=== PATIENT | male | born 1950 | race Caucasian/White ===

== ENCOUNTER 2017-04-10 12:30 | Observation (INO) | payer MEDICARE, OTHER ==
[~2017-04-10] VITALS: Ht 182.9 cm; Wt 99.4 kg
[2017-04-10] VITALS (14 sets, daily range): BP systolic 114–155; BP diastolic 45–96
[~2017-04-10 12:30] MED LIST: EXCEDRIN EXTRA1 EACH PO; PRILOSEC20 M1 PO; Prilosec20 MG PO; UNITHROID0.088 MG PO; VITAMIN C PUR1000 MG PO; VITAMIN D32000 UNI1 PO
[2017-04-10 12:49] LABS: HEMOGLOBIN 12.1 g/dL (14.1-18.0); LYMPH # 1.1 K/mm3 (0.7-4.5); LYMPH % 18.6 % (10-50)
[2017-04-10 13:12] LABS: BUN 25 mg/dL (7-18); GFR (ESTIMATED) 75 ML/MIN (>60)
--- NOTE | 2017-04-10 13:26 | Emergency Room Report ---
History of Present Illness Time Seen by [id number] Presenting Problem in Triage Pt arrived:Walked Presenting Problem:GI DISCOMFORT FOR A COUPLE OF DAYS PT STATES HE HAS BEEN EXPERIENCING CHILLS, MID EPIGASTRIC DISCOMFORT AND HAS VOMITED AT LEAST 4 TIMES. THE LAST OF THE EMESIS BEING DARK. 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 N Clinical Suspician of Infection? N Mental Status: 1 - Regular (Normal Baseline) Sepsis Risk:Low Sepsis Risk Have you (or family members/close friends) recently traveled outside the [place]? N If Yes, where/when: Have you had exposure to infectious disease within the past month? TB? Other? Specify: Dark emesis, dark stools x one day, epigastric pain localized, nonradiating, x four to five days. Reports unintentional weight loss of twenty pounds in the last few months. No urinary sx. Took aspirin yesterday for mild cephalgia, and no cephalgia today. No cough, no fever, no flu symptoms. Initially my understanding was that he had not undergone colonoscopy but on further discussion, he has had intervention of his esophagus (?dilatation?) in [place] in the past as well as colonoscopy. No recent colonoscopy, however. ALLERGIES Coded Allergies: No Known Allergies (04/10/17) Home Medications Reported Medications OMEPRAZOLE MAGNESIUM (Prilosec 20MG) 20 MG PO PRN Levothyroxine Sodium (Levothyroxine (88 Mcg)) 0.088 MG PO DAILY Cholecalciferol (Vitamin D3) (Vitamin D3) 2,000 UNIT PO Ascorbic Acid (Vitamin C) 1,000 MG PO Aspirin/Acetaminophen/Caffeine (Excedrin Extra Strength Caplet) 1 EACH PO History Medical History General Angina: No NC: No Hypertension? No Hyperlipidemia? No CHF? No COPD? No Asthma? No Hernia? No Thyroid Problems? Yes CVA? No Seizures? No Diabetes? No UTI? No Stones? No GB Disease: No Hepatitis? No Cataracts? Yes Glaucoma? No TB? No Cancer? No Immunization Hx Ped.Immunizations UTD Yes DT/Tetanus 1-4 YRS Flu NEVER Pneumonia NEVER Surgical Hx Previous Surgery?Y CATARACTS L HAND Family History Family Hx Diabetes Yes CAD Yes Hypertension Yes Hyperlipidemia No Cancer No TB No Social History Smoking Hx Smoker: Never Smoker Tobacco: No Type N/A Are you/the child exposed to second-hand smoke: No Alcohol Alcohol: No Review of Systems All Other Systems Reviewed and Negative Constitutional see HPI Gastrointestinal see HPI, diarrhea, vomiting Physical Exam Vital Signs Vital Signs Date Time Temp Pulse Resp B/P Pulse O2 O2 Flow FiO2 Ox Delivery Rate 04/10 1238 97.6 79 18 142/96 99 General Appearance normal appearance, WD/WN, no apparent distress Eye Exam - bilateral eye normal exam, bilateral eye PERRL, bilateral eye EOMI Neck normal inspection, non-tender, supple, full range of motion Respiratory Status Yes: trachea midline, chest symmetrical, non tender chest. No: respiratory distress, tender on palpation, use of accessory muscles, pain on inspiration, pain on expiration, productive cough, non productive cough. Lung Sounds bilateral: normal breath sounds, lungs clear. Cardiovascular normal exam, regular rate/rhythm, no peripheral edema, no gallop, no JVD, no murmur, no rub Gastrointestinal normal bowel sounds, normal exam, soft, no organomegaly, no pulsatile mass, no guarding, no rebound, tenderness, hernia (very mild pain above umbilicus) Extremities normal range of motion, normal capillary refill Strength 5 Upper Ext (L), 5 Upper Ext (R), 5 Lower Ext (L), 5 Lower Ext (R) Rectal normal exam, normal rectal tone, black stool (no hemorrhoids;nl prostate) Neurologic alert, normal exam, no motor/sensory deficits Skin intact, normal color, warm/dry Medical Decision Making LABS/Meds/Orders Pt receiving controlled substance in ED? No Results/Orders Laboratory Tests 04/10/17 1325: Stool Occult Blood POSITIVE 04/10/17 1240: Sodium 143, Potassium 3.8, Chloride 106, Carbon Dioxide 29, BUN 25 H, Creatinine 1.0, Estimated Creat Clear 105, Estimated GFR (MDRD) 75, Glucose 93, Calcium 9.0, Total Bilirubin 0.5, AST 22, ALT 25, Alkaline Phosphatase 102, Creatine Kinase 367 H, CK-MB (CK-2) Rel Index 1.6, CK and CKMB Interp 5.9 H, Troponin I < 0.02, Total Protein 6.9, Albumin 3.9, Globulin 3.0, Albumin/ Globulin Ratio 1.3, Amylase 31, Lipase 194, PT 10.7, INR 0.99, APTT 26.7, WBC 6.1, RBC 4.11 L, Hgb 12.1 L, Hct 36.7 L, MCV 89.3, RDW 14.1, Plt Count 293, MPV 8.6, Gran % 73.2, Gran # 4.4, Lymphocytes % 18.6, Monocytes % 6.4, Eosinophils % 1.0, Basophils % 0.9, Lymphocytes # 1.1, Monocytes # 0.4, Eosinophils # 0.1, Basophils # 0.1, PUBS MCHC 33.0, MCH 29.4 Current Medication Orders Sig/Mynor Start time Last Medication Dose Route Stop Time Status Admin Pantoprazole Sodium 40 MG ONCE ONE 04/10 1330 CAN IV 04/10 1331 Sodium Chloride 10 ML ONCE ONE 04/10 1330 DC IV 04/10 1331 Sodium Chloride 1,000 ML .STK-MED ONE 04/10 1246 DC IV Ondansetron HCl 4 MG ONCE ONE 04/10 1245 DC 04/10 IV 04/10 1246 1250 Ondansetron HCl 0 .STK-MED ONE 04/10 1245 DC .ROUTE Pantoprazole Sodium 40 MG ONCE ONE 04/10 1245 DC 04/10 IV 04/10 1246 1250 Pantoprazole Sodium 0 .STK-MED ONE 04/10 1245 DC IV Sodium Chloride 1,000 ML .Q1H1M 04/10 1245 DC 04/10 IV 04/10 1345 1250 Sodium Chloride 10 ML PRN PRN 04/10 1245 AC IV 04/11 1241 Sodium Chloride 10 ML ONCE ONE 04/10 1245 DC 04/10 IV 04/10 1246 1251 Sodium Chloride 10 ML PRN PRN 04/10 1245 AC IV 04/11 1241 Orders Procedure Date/time Status Decision to admit 04/10 1415 Active TYPE AND SCREEN 04/10 1345 Active PARTIAL THROMBOPLASTIN TIME 04/10 1345 Complete PROTHROMBIN TIME 04/10 1345 Complete STOOL OCCULT BLOOD 04/[address] ABD/PELVIS REQ 04/10 1242 Complete IV SALINE LOCK 04/10 1242 Active LIPASE 04/10 1242 Complete CBC WITH AUTO DIFF 04/10 1242 Complete CARDIAC ENZYMES 04/10 1242 Complete CHEM 12 PROFILE 04/10 1242 Complete AMYLASE 04/10 1242 Complete XRAY/CT/US XRAY/CT/US CT interpretation by reviewed by me (report reviewed) Time results known: 1402 CT Results abnormal, reflux; diverticulosis Consult MD Physician Consult 1 Consult/PCP Dr. Thao available to evaluate later today as pt HDS. Keep pt NPO. Time Called 1402 Reason Pt. Condition, Surgical eval/care Physician Consult 2 Consult/PCP Dr. Abernathy admitting for Dr. Soler Time Called 141 Departure Departure Time of Disposition 141 Disposition Still a Patient Clinical Impression Primary Impression: Epigastric pain Secondary Impressions: Guaiac positive stools Condition STABLE Referrals Kim Soler MD (Family) ED Critical Care Critical Care No at [id number]
[2017-04-10 13:28] LABS: STOOL OCCULT BLOOD POSITIVE (NEG)
--- NOTE | 2017-04-10 13:53 | RADIOLOGY REPORT PS360 ---
CT ABD PELVIS W/O CONTRAST CLINICAL INDICATION: PAIN MID EPIGASTRIC AREA ORDERING PHYSICIAN: PATIENT AGE: 66 years COMPARISON: None TECHNIQUE: Axial images obtained with sagittal and coronal reformats. PROCEDURE: Oral Contrast: None IV Contrast: None . FINDINGS: Lower thorax: There is mild thickening of the distal esophagus nonspecific and may be seen with reflux esophagitis. Please correlate clinically. ABDOMEN: Liver: No masses or biliary dilatation. Gallbladder: Nondistended. No radio opaque stones. Pancreas: No masses or peripancreatic fluid collections. Spleen: Unremarkable. Adrenals: Unremarkable Kidneys/ureters: No masses. No renal calculi. No hydronephrosis. No perinephric fluid collections. No ureteral dilatation or obvious ureteral calculi. Stomach bowel: There is extensive diverticulosis of the descending and sigmoid colon but no evidence of diverticulitis Appendix: No evidence of appendicitis. PELVIS: Reproductive: Unremarkable Bladder: Nondistended. No obvious stones or masses. ABDOMEN & PELVIS: Peritoneum: No abnormal fluid collections. No obvious inflammatory changes. No free air. Abdominal wall: Tiny umbilical hernia containing fat Lymph nodes: No enlarged lymph nodes apparent. Vasculature: No evidence of abdominal aortic aneurysm. No retroperitoneal hemorrhage evident. Bones: Degenerative disc disease L4-5 and L5-S1 IMPRESSION: 1. No acute abdominal or pelvic findings. 2. Extensive diverticulosis. No evidence of diverticulitis. 3. Mild thickening of the distal esophagus nonspecific but could be seen with reflux esophagitis
--- OUTSIDE RECORDS SUMMARY | 2017-04-10 14:28 | External Medical Summary Rpt | CCD ---
Author Author , RODGER SOARES Address Unknown Phone [email or web address] Purpose Continuity of Care Document - 04-10-2017 through 2016 Problems Code Diagnosis DOS Provider Status R07.9 CHEST PAIN, UNSPECIFIED Results Labs Lab Lab Date Result Refere Interp Status Commen Order Detail nces retati t Range on Hemoglobin.gastrointestinal [Presence] in Stool (04-10-2017 13:25) Hemoglo POSITIV NEG complet bin.gas 017 E ed trointe 13:25 stinal [Presen ce] in Stool --1st specime n
--- OUTSIDE RECORDS SUMMARY | 2017-04-10 14:28 | External Medical Summary Rpt | CCD ---
Author Author , RODGER SOARES Address Unknown Phone [email or web address] Purpose Continuity of Care Document - 04-10-2017 [...]
--- OUTSIDE RECORDS SUMMARY | 2017-04-10 14:28 | External Medical Summary Rpt | CCD ---
Author Author [employer] Organization [employer] Address Unknown Phone Unavailable Purpose Continuity of Care Document - through 2016
--- OUTSIDE RECORDS SUMMARY | 2017-04-10 14:29 | External Medical Summary Rpt | CCD ---
Demographics Preferred Language Irish Marital Status Unknown Lutheran Affiliation Unknown Race Unknown Ethnic Group Unknown Author Author , ABRAHAM SOARES Address Unknown Phone Immunization Unable to retrieve immunization data due to connection failure with Immunization Registry. Please try again later.
--- OUTSIDE RECORDS SUMMARY | 2017-04-10 14:29 | External Medical Summary Rpt ---
Author Author RODGER Perales, BRICHARLES [employer] Organization [employer] Address Unknown Phone Unavailable Results Hemoglobin.gastrointestinal [Presence] in Stool Observa Value Referen Units Interpr Notes Date tion ce etation Range Hemoglo POSITIV NEG No No No Apr 10 bin.gas E informa informa informa 2017 trointe tion in tion in tion in 1:25 PM stinal source source source [Presen data data data ce] in Stool --1st specime n INR in Blood by Coagulation assay Observa Value Referen Units Interpr Notes Date tion ce etation Range IS PATIENT ON ANTICOAGULANTS? N INR in 0.9 - 1.1 No Normal INDICATIO Apr 10 Blood by informati N 2017 Coagulati on in 12:40 PM on assay source INR data RANGETHER APY FOR DVT, PE, ATRIAL FIB; 2.0 - 3.0PROPHY LAXIS FOR VTETHERAP Y FOR MECHANICA L HEART 2.5 - 3.5VALVE; PREVENTIO N OF SYSTEMICE MBOLISM SECONDARY TO AMI Prothromb 9.4 - SECONDS Normal No Apr 10 in time 11.8 2016 (PT) in on in 12:40 PM Platelet source poor data plasma by Coagulati on assay Activated partial thrombplastin time (aPTT) in Platelet poor plasma by Coagulation assay Observa Value Referen Units Interpr Notes Date tion ce etation Range IS PATIENT ON ANTICOAGULANTS? N Activated 23.6 - SECONDS Normal No Apr 10 partial 34.0 2016 thrombpla on in 12:40 PM stin time source (aPTT) data in Platelet poor plasma by Coagulati on assay CBC W Auto Differential panel in Blood Observa Value Referen Units Interpr Notes Date tion ce etation Range Basophils 0 - 0.2 K/MM3 Normal No Apr 102016 [#/volume on in 12:40 PM ] in source Blood by data Automated count Basophils 0.1 - 2.0 % Normal No Apr 10 /100 informati 2017 leukocyte on in 12:40 PM s in source Blood by data Automated count Eosinophi 0.0 - 0.4 K/mm3 Normal No Apr 10 ls informati 2016 [#/volume on in 12:40 PM ] in source Blood by data Automated count Eosinophi 0.1 - % Normal No Apr 10 ls/100 12.0 informati 2016 leukocyte on in 12:40 PM s in source Blood by data Automated count Granulocy 1.3 - 8.0 K/mm3 Normal No Apr 10 ladna informati 2016 [#/volume on in 12:40 PM ] in source Blood by data Automated count Granulocy 37.0 - % Normal No Apr 10 ladan/100 80.0 informati 2016 leukocyte on in 12:40 PM s in source Blood by data Automated count Hematocri 42.0 - % Low No Apr 10 t [Volume 52.0 informati 2016 on in 12:40 PM Fraction] source of Blood data Hemoglobi 14.1 - g/dL Low No Apr 10 n 18.0 informati 2016 [Mass/vol on in 12:40 PM ume] in source Blood data Lymphocyt 0.7 - 4.5 K/mm3 Normal No Apr 10 es 2016 [#/volume on in 12:40 PM ] in source Unspecifi data ed specimen by Automated count Lymphocyt 10 - 50 % Normal No Apr 10 es 2016 [#/volume on in 12:40 PM ] in source Unspecifi data ed specimen by Automated count Erythrocy 27 - 31.2 pg Normal Apr 10 te mean 2016 corpuscul on in 12:40 PM ar source hemoglobi data n [Entitic mass] Erythrocy 31.8 - g/dl Normal Apr 10 te mean 35.4 2016 corpuscul on in 12:40 PM ar source hemoglobi data n concentra tion [Mass/vol ume] by Automated count Erythrocy 82.2 - fl Normal Apr 10 te mean 97.8 informati 2016 corpuscul on in 12:40 PM ar volume source [Entitic data volume] by Automated count Monocytes 0.1 - 1.0 K/mm3 Normal No Apr 102016 [#/volume on in 12:40 PM ] in source Blood by data Automated count Monocytes 1.7 - 9.3 % Normal No Apr 10 / inform2016 leukocyte on in 12:40 PM s in source Blood by data Automated count Platelet 7.4 - fl Normal No Mar 22 mean 10.4 2016 volume on in 12:40 PM [Entitic source volume] data in Blood by Automated count Platelets 142 - 424 K/mm3 Normal No Apr 10 inform2016 [#/volume on in 12:40 PM ] in source Blood data Erythrocy 4.6 - 6.2 M/mm3 Low No Apr 10 ladan 2016 [#/volume on in 12:40 PM ] in source Amniotic data fluid Erythrocy 11.5 - % Normal Apr 10 te 17.5 ati 2016 distribut on in 12:40 PM ion width source [Entitic data volume] by Automated count Leukocyte 4.8 - K/MM3 Normal Apr 10 s 10.8 informati 2016 [#/volume on in 12:40 PM ] in source Blood data
--- OUTSIDE RECORDS SUMMARY | 2017-04-10 14:29 | External Medical Summary Rpt | CCD ---
Demographics Preferred Language Upper Sorbian Marital Status Unknown Mandaeism Affiliation Unknown Race Unknown Ethnic Group Unknown Author Author , ABRAHAM SOARES Address Unknown Phone Immunization Unable to retrieve immunization data due to connection failure with Immunization Registry. Please try again later.
--- OUTSIDE RECORDS SUMMARY | 2017-04-10 14:29 | External Medical Summary Rpt ---
Author Author RODGER Perales, BRICHARLES [employer] Organization [employer] Address Unknown Phone Unavailable [...] - 8.0 K/mm3 Normal No Apr 10 ladan informati 2016 [#/volume on in 12:40 PM [...]
--- OUTSIDE RECORDS SUMMARY | 2017-04-10 14:32 | External Medical Summary Rpt | CCD ---
Author Author , RODGER SOARES Address Unknown Phone [email or web address] Purpose Continuity of Care Document - 04-10-2017 [...]
--- OUTSIDE RECORDS SUMMARY | 2017-04-10 14:32 | External Medical Summary Rpt | CCD ---
Author Author , RODGER SOARES Address Unknown Phone [email or web address] Purpose Continuity of Care Document - 04-10-2017 [...]
--- OUTSIDE RECORDS SUMMARY | 2017-04-10 14:33 | External Medical Summary Rpt | CCD ---
Demographics Preferred Language Turkmen Marital Status Unknown Synagogue Affiliation Unknown Race Unknown Ethnic Group Unknown Author Author , ABRAHAM SOARES Address Unknown Phone Immunization Unable to retrieve immunization data due to connection failure with Immunization Registry. Please try again later.
--- OUTSIDE RECORDS SUMMARY | 2017-04-10 14:33 | External Medical Summary Rpt ---
Author Author RODGER Perales, BRICHARLES [employer] Organization [employer] Address Unknown Phone Unavailable [...] - 8.0 K/mm3 Normal No Apr 10 ldaan informati 2016 [#/volume on in 12:40 PM [...]
--- OUTSIDE RECORDS SUMMARY | 2017-04-10 14:33 | External Medical Summary Rpt ---
Author Author RODGER Perales, BRICHARLES [employer] Organization [employer] Address Unknown Phone Unavailable [...]
--- OUTSIDE RECORDS SUMMARY | 2017-04-10 14:33 | External Medical Summary Rpt | CCD ---
Demographics Preferred Language Khmer Marital Status Unknown Lutheran Affiliation Unknown Race Unknown Ethnic Group Unknown Author Author , ABRAHAM SOARES Address Unknown Phone Immunization Unable to retrieve immunization data due to connection failure with Immunization Registry. Please try again later.
[2017-04-10 14:58] LABS: ABO BLOOD TYPE O; RH BLOOD TYPE POSITIVE
[2017-04-10] MEDS ORDERED: NEXIUM 24HR20 M2 PO (15:07)
[2017-04-10] MEDS ORDERED: EXCEDRIN EXTRA1 EACH PO (15:08)
--- NOTE | 2017-04-10 15:15 | HISTORY AND PHYSICAL REPORT ---
History and Physical (FCA) Date of admission: 04/10/17 Chief complaint: vomiting black emesis History: History of Present Illness: Mr Thao is a 66 year old male with a history of GERD and other heredia healthy who presented to [facility] ER after vomiting black/red emesis last PM. This was associated with epigastric pain; he has also had dark diarrhea. He describes not feeling well for several days.. He has not eaten since 04/07/17, but denies nausea and vomiting until last PM. He also had headaches and was taking Excedrin. He does take Nexium for the GERD. He has had previous colonoscopy years ago and esophageal dilitations. He also says he has had a 20# weight loss in the past few months. He was evaluated in the ER with the decision to adm him for further evaluation and treatment. He has already been seen by Dr. Thao, surgeon. Past Medical History: Medical History: CAD? No Angina: No W[place]: No Hypertension? No Hyperlipidemia? No CHF? No COPD? No Asthma? No Anemia? No GERD? Yes Gastric ulcers? No GI Bleed? Yes Hernia? No Thyroid Problems? Yes Hypothyroidism? Yes CVA? No Seizures? No Diabetes? No Renal Insuffiency? No UTI? No Stones? No BPH? No GB Disease: No Hepatitis? No Arthritis? No Cataracts? Yes Glaucoma? No TB? No Cancer? No Surgical history: Previous Surgery?Y CATARACTS L HAND ; partial bilateral knee replacements Allergies: Coded Allergies: No Known Allergies (04/10/17) Family History: Family history: Postive for: CAD, DM. Negative for: cancer, stroke. Social History: Smoking Hx Tobacco: No Smoker: Never Smoker Type: N/A Packs/day: N/A Are you exposed to second hand No Alcohol: Alcohol: No Hx of Drug Use: Drug Use? No Patien't marital status is: Review of Systems: Constitutional Positive for: recent weight loss (20#). ENT No: ear ache, mouth pain, sore throat. Cardiovascular No: chest pain, edema, palpitations. Respiratory No: shortness of air, hemoptysis, non-productive, productive cough (sputum). GI Positive for: GERD, abdominal pain, anorexia, diarrhea, hematemeis, melena, nausea, vomitting. No: constipation, dysphagia, hematochezia. (male) No: hematuria. Neurological Positive for: headache. No: dizziness, seizure, syncope. Physical Exam: Vital signs: 1ST Vital Signs Result Date Time Pulse Ox 99 04/10 1238 B/P 142/96 04/10 1238 Temp 97.6 04/10 1238 Pulse 79 04/10 1238 Resp 18 04/10 1238 Exam: General appearance: alert, active, no acute distress, well-developed, well- nourished Eyes: anicteric, pupils reactive to light ENT: mucous membranes moist, pharynx normal Neck: non-tender, no carotid bruit, full range of motion, supple, lymphadenopathy (absent), thyroid (normal) Cardiovascular: normal sinus rhythm Respiratory: clear to auscultation (bilat anterior and posterior) ABD: soft, no guarding, bowel sounds present, tenderness (epigastric) Extremities: no peripheral edema Neuro: alert, oriented Lab data: Labs: Laboratory Tests 04/10/17 1400: Antibody Screen NEGATIVE, Miscellaneous Test POSITIVE 04/10/17 1325: Stool Occult Blood POSITIVE 04/10/17 1240: Sodium 143, Potassium 3.8, Chloride 106, Carbon Dioxide 29, BUN 25 H, Creatinine 1.0, Estimated Creat Clear 105, Estimated GFR (MDRD) 75, Glucose 93, Calcium 9.0, Total Bilirubin 0.5, AST 22, ALT 25, Alkaline Phosphatase 102, Creatine Kinase 367 H, CK-MB (CK-2) Rel Index 1.6, CK and CKMB Interp 5.9 H, Troponin I < 0.02, Total Protein 6.9, Albumin 3.9, Globulin 3.0, Albumin/ Globulin Ratio 1.3, Amylase 31, Lipase 194, PT 10.7, INR 0.99, APTT 26.7, WBC 6.1, RBC 4.11 L, Hgb 12.1 L, Hct 36.7 L, MCV 89.3, RDW 14.1, Plt Count 293, MPV 8.6, Gran % 73.2, Gran # 4.4, Lymphocytes % 18.6, Monocytes % 6.4, Eosinophils % 1.0, Basophils % 0.9, Lymphocytes # 1.1, Monocytes # 0.4, Eosinophils # 0.1, Basophils # 0.1, PUBS MCHC 33.0, MCH 29.4 Radiology results: Results: 04/10/17 CT of abdomen IMPRESSION: 1. No acute abdominal or pelvic findings. 2. Extensive diverticulosis. No evidence of diverticulitis. 3. Mild thickening of the distal esophagus nonspecific but could be seen with reflux esophagitis Diagnosis(es): 1. Guaiac positive stools 2. Epigastric pain 3. GI bleed Plan: has been seen by who plans GI studies; IVF and PPI; monitor H&H (Cindy Carbajal APRN) Past Medical History: Medications: Reported Medications Levothyroxine Sodium (Levothyroxine (88 Mcg)) 0.1 MG PO DAILY Esomeprazole Magnesium (Nexium 24HR) 40 MG PO BID Aspirin/Acetaminophen/Caffeine (Excedrin Extra Strength Caplet) 2 EACH PO Q6HPRN POTASSIUM CHL (Potassium Chloride) (Unknown Dose) PO DAILY Cholecalciferol (Vitamin D3) (Vitamin D3) 2,000 UNIT PO Ascorbic Acid (Vitamin C) 1,000 MG PO Discontinued Reported Medications OMEPRAZOLE MAGNESIUM (Prilosec 20MG) 20 MG PO PRN Aspirin/Acetaminophen/Caffeine (Excedrin Extra Strength Caplet) 1 EACH PO Diagnosis(es): 1. Guaiac positive stools 2. Epigastric pain 3. GI bleed Plan: Patient seen and agree with above note. (Myke Abernathy MD) at 1515 at 1708
--- NOTE | 2017-04-10 15:41 | Operative Note ---
Surgeon/Diagnoses Surgeon/Real Time Analyst(s) Date of procedure: 04/10/17 Surgeon: MD Ginger Brown Diagnoses Pre-op diagnosis: Upper gastrointestinal hemorrhage as evidenced by melena and hematemesis Post-op diagnosis Same as preoperative diagnosis, with the addition of following: Pyloric channel ulcer Gastritis Procedure Procedure Procedure: Esophagogastroduodenoscopy with biopsy Indications: CALEB BROWN is a 66 year-old Male with a history of hematemesis and melena. Findings: Significant patchy gastritis with severe antral inflammation Pyloric channel ulcer with crater (no clot or visible vessel, but exudate at the base noted) No sign of "old blood" and no sign of active bleeding Procedure Description: After informed consent was obtained, the patient was taken to the endoscopy suite. Monitored anesthesia care ensued after he was transferred to the LEFT lateral decubitus position. The stomach was entered. Patchy gastritis was noted and fairly superior inflammation was noted distally. Multiple biopsies of the antrum were obtained. A fairly large crater ulcer of the pyloric channel was noted. No clot and no visible vessel was seen. Exudate was seen at the base. Some patchy inflammation of the duodenum was seen. No old blood and no sign of active bleeding was noted throughout the procedure. The gastroscope was carefully removed and the patient was transferred to recovery. EBL (ml): 1 Anesthesia: Monitored anesthesia care Complications: No immediate Specimens: Antral biopsies Disposition Disposition: Stable to recovery from where he will be transferred to the floor at 2260
[2017-04-10] MEDS ORDERED: POTASSIUM CHLO10 ME3 PO (16:14)
[2017-04-10 20:17] LABS: HEMOGLOBIN 9.9 g/dL (14.1-18.0)
[2017-04-11 00:16] VITALS: BP 134/72
[2017-04-11 04:30] VITALS: BP 139/66
[2017-04-11 05:43] LABS: LYMPH # 0.7 K/mm3 (0.7-4.5)
[2017-04-11 08:00] VITALS: BP 142/83
[2017-04-11 08:41] VITALS: BP 142/83
--- NOTE | 2017-04-11 08:47 | SURGEON PROGRESS NOTE ---
Subjective data Subjective data: Feels "fine" this morning. No hematemesis. Objective data Vitals,I&O,and Labs: Vital signs, intake and output,and available lab data for the last 24 hours is as noted below. Vital Signs Date Time Temp Pulse Resp B/P Pulse O2 O2 Flow FiO2 Ox Delivery Rate 04/11 0841 97.1 74 18 142/83 97 04/11 0800 97.1 74 18 142/83 97 ROOM AIR 04/11 0430 98.2 71 16 139/66 97 ROOM AIR 04/11 0016 97.4 80 18 134/72 97 ROOM AIR 04/10 1945 98.4 78 16 115/60 98 04/10 1912 98.4 78 16 115/60 98 04/10 1845 98.2 86 16 121/52 97 04/10 1745 98.3 74 16 130/55 99 04/10 1715 98.3 74 16 150/69 98 04/10 1645 98.3 73 16 114/45 98 04/10 1630 98.3 88 16 151/85 98 04/10 1615 98.3 76 16 136/60 99 04/10 1600 98.2 83 16 141/55 96 04/10 1553 83 16 122/55 04/10 1552 83 04/10 1552 98.2 83 16 122/55 04/10 1552 96 ROOM AIR 04/10 1552 98.2 83 16 122/55 96 04/10 1550 98.2 79 16 132/66 96 ROOM AIR 04/10 1545 98.2 80 16 155/68 98 04/10 1540 81 16 117/54 97 ROOM AIR 04/10 1531 84 16 123/49 04/10 1522 99 04/10 1508 97.6 79 18 142/96 99 04/10 1505 97.6 79 18 142/96 99 04/10 1426 75 18 131/90 99 04/10 1238 97.6 79 18 142/96 99 04/10 1500 04/10 2300 04/11 0700 Intake Total 840 Output Total Balance 840 Intake, Oral 840 Patient 102.06 kg 99.395 kg Weight Laboratory Tests Test Result Date Time Chemistry Sodium (mmoL/L) 143 04/11 0515 Potassium (mmoL/L) 4.0 04/11 0515 Chloride (mmoL/L) 110 11/23 0515 Carbon Dioxide (mmoL/L) 29 04/11 515 BUN (mg/dL) 16 04/11 515 Creatinine (mg/dL) 1.0 04/11 515 Estimated Creat Clear (ML/MIN) 102 04/11 515 Estimated GFR (MDRD) (ML/MIN) 75 04/11 515 Glucose (mg/dL) 95 04/11 515 Calcium (mg/dL) 8.4 04/11 515 Total Bilirubin (mg/dL) 0.5 04/10 1240 AST (U/L) 22 04/10 1240 ALT (U/L) 25 04/10 1240 Alkaline Phosphatase (U/L) 102 04/10 1240 Creatine Kinase (U/L) 367 04/10 1240 CK-MB (CK-2) Rel Index (U/L) 1.6 04/10 1240 CK and CKMB Interp (ng/mL) 5.9 04/10 1240 Troponin I (ng/mL) < 0.02 04/10 1240 Total Protein (gm/dL) 6.9 04/100 Albumin (gm/dL) 3.9 04/100 Globulin (gm/dL) 3.0 04/10 1240 Albumin/Globulin Ratio 1.3 04/10 1240 Amylase (U/L) 31 04/10 1240 Lipase (U/L) 194 04/10 1240 Coagulation PT (SECONDS) 10.7 04/10 1240 INR 0.99 04/10 1240 APTT (SECONDS) 26.7 04/10 1240 Hematology WBC (K/MM3) 3.1 04/11 515 RBC (M/mm3) 3.43 04/11 515 Hgb (g/dL) 10.0 04/11 515 Hct (%) 30.9 04/11 515 MCV (fl) 90.0 04/11 515 RDW (%) 14.1 04/11 515 Plt Count (K/mm3) 196 04/11 515 MPV (fl) 8.4 04/11 515 Gran % (%) 65.3 04/11 515 Gran # (K/mm3) 2.0 04/11 515 Lymphocytes % (%) 22.0 04/11 515 Monocytes % (%) 7.9 04/11 515 Eosinophils % (%) 4.0 04/11 515 Basophils % (%) 0.7 04/11 515 Lymphocytes # (K/mm3) 0.7 04/11 515 Monocytes # (K/mm3) 0.2 04/11 515 Eosinophils # (K/mm3) 0.1 04/11 515 Basophils # (K/MM3) 0.0 04/11 515 PUBS MCHC (g/dl) 32.4 04/11 515 Immunology Antibody Screen NEGATIVE 04/10 1400 MCH (pg) 29.2 04/11 515 Miscellaneous Miscellaneous Test POSITIVE 04/10 1400 Other Body Source Stool Occult Blood POSITIVE 04/10 1325 Additional data: Hemoglobin stable his morning Assessment findings Assessment Exam General appearance: normal appearance Cardiovascular: regular rate & rhythm Respiratory: no respiratory distress ABD: soft Patient plan Diagnoses: Pyloric channel ulcer with recent hemorrhage. No sign of active bleeding. Plan: Ambulate Additional data: 1) continue high-dose proton pump inhibitor (BID) 2) continue Carafate 3) repeat EGD in 6-8 weeks 4) follow-up in my office next week to review pathology results at 0847
--- NOTE | 2017-04-11 09:18 | ACUTE CARE PROGRESS NOTE (QUA) ---
See Addendum Progress Notes Subjective Date 04/11/17 Time 0914 Note Patient has done well overnight, no new problems, wants to go home. Objective Findings Laboratory Tests 04/11/17 0515: Sodium 143, Potassium 4.0, Chloride 110 H, Carbon Dioxide 29, BUN 16, Creatinine 1.0, Estimated Creat Clear 102, Estimated GFR (MDRD) 75, Glucose 95, Calcium 8.4 L, WBC 3.1 L, RBC 3.43 L, Hgb 10.0 L, Hct 30.9 L, MCV 90.0, RDW 14.1, Plt Count 196, MPV 8.4, Gran % 65.3, Gran # 2.0, Lymphocytes % 22.0, Monocytes % 7.9, Eosinophils % 4.0, Basophils % 0.7, Lymphocytes # 0.7, Monocytes # 0.2, Eosinophils # 0.1, Basophils # 0.0, PUBS MCHC 32.4, MCH 29.2 04/10/17 1955: Hgb 9.9 L, Hct 29.9 L 04/10/17 1400: Antibody Screen NEGATIVE, Miscellaneous Test POSITIVE 04/10/17 1325: Stool Occult Blood POSITIVE 04/10/17 1240: Sodium 143, Potassium 3.8, Chloride 106, Carbon Dioxide 29, BUN 25 H, Creatinine 1.0, Estimated Creat Clear 105, Estimated GFR (MDRD) 75, Glucose 93, Calcium 9.0, Total Bilirubin 0.5, AST 22, ALT 25, Alkaline Phosphatase 102, Creatine Kinase 367 H, CK-MB (CK-2) Rel Index 1.6, CK and CKMB Interp 5.9 H, Troponin I < 0.02, Total Protein 6.9, Albumin 3.9, Globulin 3.0, Albumin/ Globulin Ratio 1.3, Amylase 31, Lipase 194, PT 10.7, INR 0.99, APTT 26.7, WBC 6.1, RBC 4.11 L, Hgb 12.1 L, Hct 36.7 L, MCV 89.3, RDW 14.1, Plt Count 293, MPV 8.6, Gran % 73.2, Gran # 4.4, Lymphocytes % 18.6, Monocytes % 6.4, Eosinophils % 1.0, Basophils % 0.9, Lymphocytes # 1.1, Monocytes # 0.4, Eosinophils # 0.1, Basophils # 0.1, PUBS MCHC 33.0, MCH 29.4 Vital Signs Date Time Temp Pulse Resp B/P Pulse O2 O2 Flow FiO2 Ox Delivery Rate 04/11 0841 97.1 74 18 142/83 97 04/11 0800 97.1 74 18 142/83 97 ROOM AIR 04/11 0430 98.2 71 16 139/66 97 ROOM AIR 04/11 0016 97.4 80 18 134/72 97 ROOM AIR 04/10 1945 98.4 78 16 115/60 98 04/10 1912 98.4 78 16 115/60 98 04/10 1845 98.2 86 16 121/52 97 04/10 1745 98.3 74 16 130/55 99 04/10 1715 98.3 74 16 150/69 98 04/10 1645 98.3 73 16 114/45 98 04/10 1630 98.3 88 16 151/85 98 04/10 1615 98.3 76 16 136/60 99 04/10 1600 98.2 83 16 141/55 96 04/10 1553 83 16 122/55 04/10 1552 83 04/10 1552 98.2 83 16 122/55 04/10 1552 96 ROOM AIR 04/10 1552 98.2 83 16 122/55 96 04/10 1550 98.2 79 16 132/66 96 ROOM AIR 04/10 1545 98.2 80 16 155/68 98 04/10 1540 81 16 117/54 97 ROOM AIR 04/10 1531 84 16 123/49 04/10 1522 99 04/10 1508 97.6 79 18 142/96 99 04/10 1505 97.6 79 18 142/96 99 04/10 1426 75 18 131/90 99 04/10 1238 97.6 79 18 142/96 99 I&O Past 24 Hrs-ending at 0700 04/11 0700 Intake Total 840 Output Total Balance 840 Last VS-Temp:97.1 B/P:142/83 Pulse:74 Resp:18 SaO2:97 ROOM AIR Last weight lbs:219 oz:2 K.395 Method:Bed Scales Exam General appearance: alert, awake, no acute distress Cardiovascular: regular rate & rhythm Respiratory: clear to auscultation ABD: normal bowel sounds, soft, no tenderness Extremities: no peripheral edema Assessment/Plan Problem List 1. Peptic ulcer disease with hemorrhage 2. Guaiac positive stools 3. Epigastric pain This inpt stay is expected to cross 2 MNs from start of care Yes Comments: Patient discussed with Dr. Thao. He agrees with discharge today on high dose PPI, carafate and a soft diet. F/U with Dr. Thao next week. at 0918
[2017-04-11] MEDS ORDERED: CARAFATE1 GM PO (09:21)
[2017-04-11] MEDS ORDERED: FERROUS SULFAT200 M1 PO (09:22)
[2017-04-11 11:10] VITALS: BP 142/83
== END 2017-04-11 11:10 | disposition home or self-care (01) ==
LOC: ER 12:30 → 2ND 14:28 → ER 14:28 → 2ND 15:09
PROVIDERS: Emergency Medicine; Surgery
PROC: 0DB78ZX Excision of Stomach, Pylorus, Via Natural or Artificial Opening Endoscopic, Diagnostic (ICD-10-PCS; principal; 2017-04-10 15:18)
DX: K25.4 Chronic or unspecified gastric ulcer with hemorrhage (principal); K29.70 Gastritis, unspecified, without bleeding; E03.9 Hypothyroidism, unspecified; Z79.82 Long term (current) use of aspirin; Z79.899 Other long term (current) drug therapy
CPT/HCPCS: G0328; G0378; J2405

== ENCOUNTER → 2017-04-17 | Outpatient (CLI) | payer MEDICARE, OTHER ==
[~2017-04-17] MED LIST changes: +CARAFATE1 GM PO; +FERROUS SULFAT200 M1 PO; +NEXIUM 24HR20 M2 PO; +POTASSIUM CHLO10 ME3 PO
[2017-04-17 14:56] LABS: HEMOGLOBIN 10.9 g/dL (14.1-18.0)
== END ==
LOC: LAB 14:18
PROVIDERS: Surgery
DX: R10.13 Epigastric pain (principal)